=== PATIENT | male | born 1950 | race Caucasian/White ===

== ENCOUNTER 2016-06-26 12:58 | Inpatient (IN) ==
--- NOTE | 2016-06-26 13:18 | Emergency Department Note ---
Disposition Clinical Impression: Hip fracture Disposition: Admitted As Inpatient Referrals: Gisselle Seymour CNP [Primary Care Provider] - Forms: ED Satisfaction Letter General Adult HPI - General Chief complaint: ED Extremity Injury, Upper Stated complaint: fall (hip sugery x5 weeks) Time Seen by Provider: 06/26/16 13:18 Source: patient, family Limitations: physical limitation - History of Present Illness HPI Narrative: 66-year-old male reports he had a left hip replacement secondary to osteoarthritis about 5 weeks ago. The patient reports he was improving and taking less Percocet for pain when he developed acute pain today. The patient reports he was walking and he felt his hip "give out" and he twisted. He developed severe pain in the left hip afterwards. The patient is not known to be diabetic. He reports his wound is healing well. There is no history of fall onto the hip. The patient has had pain from his hip to his leg since the surgery. The pain became acutely worse. There is no history of antecedent complaints or concern otherwise. He was in his usual state of health. The patient denies any head trauma neck pain back pain chest pain or abdominal pain no upper extremity pain or right lower extremity pain there is no history of ankle pain or foot pain or leg pain or anthony knee pain. Left hip pain acutely as described. The pain is associated with movement. There is no history of low back pain spinal pain weakness or numbness of the legs, bowel or bladder problems, or any other complaint or concern. 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 Pain Scale: 10 - Related Data Home Medications Medication Instructions Recorded Confirmed Gabapentin [Neurontin] 300 mg PO TID 05/23/16 05/23/16 Lisinopril [Zestril] 20 mg PO DAILY 05/23/16 05/23/16 Meloxicam [Mobic] 15 mg PO DAILY 05/23/16 05/23/16 Omeprazole [PriLOSEC] 40 mg PO DAILY 05/23/16 05/23/16 Previous Rx's Medication Instructions Recorded OxyCODONE Immed Rel [Roxicodone 5 5 - 10 mg PO Q6HR PRN #40 tablet 05/22/16 MG] Allergies Allergy/AdvReac Type Severity Reaction Status Date / Time No Known Allergies Allergy Verified 06/26/16 15:23 All systems ED: reviewed and negative except as stated. Past Medical History - Past Medical History Medical history: Reports: arthritis, GERD, hypertension Psychiatric history: Reports: no psych history - Social History Smoking Status: Former smoker Smokeless Tobacco Status: No Alcohol use: Reports: occasionally Drug use: Reports: none Physical Exam - General Limitations: physical limitation General appearance: alert, in no apparent distress - Head Head exam: atraumatic, normocephalic, normal inspection - Eye Eye exam: Present: normal appearance, PERRL, EOMI. Absent: scleral icterus, conjunctival injection, miosis, mydriasis - ENT ENT exam: normal exam, normal oropharynx, mucous membranes moist, TM's normal bilaterally, normal external ear exam - Neck Neck exam: Present: normal inspection, full ROM, trachea midline. Absent: tenderness - Chest Chest inspection: Present: symmetric chest wall rise. Absent: tenderness - Respiratory Respiratory exam: Present: normal lung sounds bilaterally. Absent: respiratory distress - Cardiovascular Cardiovascular exam: Present: regular rate, normal rhythm, normal heart sounds - Abdominal Exam Abdominal exam: Present: soft, Non-Tender. Absent: tenderness, distention, guarding, rebound, rigidity - Extremities Exam Extremities exam: Present: normal capillary refill, other (The upper extremities and right lower extremity are supple without evidence of anthony trauma and are warm and well perfused. The left lower extremity shows a good range of motion at the knee and ankle but there is pain with movement and palpation of the hip. All 4 extremities show no evidence of acute neurovascular or neuromuscular abnormality.). Absent: joint swelling, calf tenderness - Expanded Lower Extremity Exam Neurovascular/Tendon exam: Present: normal capillary refill. Absent: motor deficit, sensory deficit, tendon deficit - Back Exam Back exam: Present: full ROM. Absent: tenderness, CVA tenderness (R), CVA tenderness (L), vertebral tenderness - Neurological Exam Neurological exam: Present: alert, oriented X3, CN II-XII intact. Absent: motor sensory deficit - Psychiatric Psychiatric exam: Present: normal affect, normal mood - Skin Skin exam: Present: warm, dry, intact, normal color, other (Surgical wound clean dry intact.). Absent: rash, cyanosis, diaphoresis, erythema, pallor, mottled Course Vital Signs Temperature 97.7 F 06/26/16 13:12 Pulse Rate 107 06/26/16 13:12 Respiratory Rate 16 06/26/16 13:12 Blood Pressure 142/86 06/26/16 13:12 O2 Sat by Pulse Oximetry 96 06/26/16 13:12 Temperature 97.7 F 06/26/16 13:12 Pulse Rate 107 06/26/16 13:28 Respiratory Rate 16 06/26/16 13:28 Blood Pressure 142/86 06/26/16 13:28 O2 Sat by Pulse Oximetry 96 06/26/16 13:28 Oxygen Delivery Oxygen Delivery Room Air Medical Decision Making - MDM Narrative Medical decision making narrative: The patient appears to have an acute hip fracture, I discussed the case with Dr. Swain orthopedist, who recommends hospitalist admission. I reviewed the case with Dr. Santos hospitalist bath design sales consultant who has accepted the patient to his care. Preoperative testing has been ordered. The patient was given analgesics in the emergency department and made nonweightbearing. He is currently stable pending admission with no evidence of neurovascular or neuromuscular compromise. The patient's surgical wound is clean dry intact. He has no other complaints apart from acute left hip pain. - Radiology Data Radiology results reviewed: Yes I reviewed the patient's radiology results.
[2016-06-26] MEDS ORDERED: *HR* OxyCODONE/APAP 5/325 TABLET PO ONE (13:27)
[2016-06-26] MEDS ORDERED: *HR* HYDROmorphone (PF) 1 MG/ML SYRINGE IVP ONE (15:15)
[2016-06-26] MEDS ORDERED: Ondansetron 4 MG/2 ML VIAL IVP ONE (15:15)
[2016-06-26 16:05] LABS: Basophils # 0.1 K/mcL (0.0-0.2); Basophils % 0.5 %; Eosinophils # 0.1 K/mcL (0.0-0.6); Eosinophils % 0.6 %; Hemoglobin 13.4 g/dL (12.9-16.9); Immature Granulocytes % 0.4 % (0-4); Lymphocytes # 1.7 K/mcL (0.6-4.6); Lymphocytes % 13.5 %; Mean Corpuscular HGB Conc 33.5 g/dL (31.6-35.5); Mean Corpuscular Hemoglobin 29.5 pg (28.0-33.3); Mean Corpuscular Volume 88.1 fL (83.0-100.0); Monocytes # 0.8 K/mcL (0.0-1.3); Monocytes % 6.4 %; Neutrophils # 10.2 K/mcL (1.6-8.9); Platelet Count 192 K/mcL (140-400); Red Blood Count 4.54 M/mcL (4.19-5.50); Red Cell Distribution Width 12.7 % (11.5-14.5); Segmented Neutrophils % 78.6 %
[2016-06-26 16:10] LABS: INR 1.1; Prothrombin Time 12.3 Seconds (9.4-12.1)
[2016-06-26 16:13] LABS: Activated Partial Thrombo Time 32.6 Seconds (26.0-36.0)
[2016-06-26 16:18] LABS: BUN/Creatinine Ratio 16 (6-26); Blood Urea Nitrogen 15 mg/dL (8-26); Carbon Dioxide 20 mEq/L (19-29); Chloride 105 mEq/L (98-109); Potassium 3.9 mEq/L (3.5-4.5); Sodium 139 mEq/L (136-145); eGFR For African Americans > 60 (> 60)
[2016-06-26 16:19] LABS: Calcium 9.3 mg/dL (8.6-10.8); Glucose 115 mg/dL (70-99); Osmolality,Calculated 290 (280-300); eGFR For Non-African Americans > 60 (> 60)
[2016-06-26 16:20] LABS: Albumin 3.9 g/dL (3.5-5.0); Albumin/Globulin Ratio 1.3 (1.1-2.2); Bilirubin,Direct 0.2 mg/dL (0.0-0.5); Bilirubin,Indirect 0.2 mg/dL (0.0-1.2); Bilirubin,Total 0.4 mg/dL (0.2-1.2); Globulin 2.9 g/dL (2.4-3.5); Total Protein 6.8 g/dL (6.0-8.3)
[2016-06-26] MEDS ORDERED: Naloxone 0.4 MG/ML INJ IVP PRN (17:39)
--- NOTE | 2016-06-26 18:08 | Internal Med History&Physical ---
<Wolfgang Santos - Last Filed: 06/26/16 19:27> Date of Encounter: 06/26/16 Internal Medicine - H&P: HPI History of present illness: Mr. Zambrano is a 66 year old male Internal Medicine - H&P: Meds OxyCODONE Immed Rel [Roxicodone 5 MG] 5 - 10 mg PO Q6HR PRN #40 tablet 05/22/16 [Rx] Gabapentin [Neurontin] 300 mg PO TID 05/23/16 [History] Lisinopril [Zestril] 20 mg PO DAILY 05/23/16 [History] Meloxicam [Mobic] 15 mg PO DAILY 05/23/16 [History] Omeprazole [PriLOSEC] 40 mg PO DAILY 05/23/16 [History] Allergies No Known Allergies Allergy (Verified 06/26/16 15:23) All Systems PM: A 10-system review of systems was performed and is negative for pertinent findings except as documented above in the HPI. - Constitutional Vitals: Temp Pulse Resp BP Pulse Ox 97.7 F 106 16 142/94 99 06/26/16 13:12 06/26/16 15:45 06/26/16 16:06 06/26/16 16:06 06/26/16 15:45 Internal Med - H&P Results - Labs CBC & Chem 7: 06/26/16 15:52 06/26/16 15:52 - Attending Attestation I examined this patient and my medical decision-making was reviewed with the Advanced Practice Provider. I agree with the documented findings, disposition and treatment plan as described except to the extent set forth below. On ex patient is in no acute distress, awake alert oriented heart regular rate and rhythm S1-S2 no murmurs. Lungs clear bilaterally abdomen soft nontender nondistended with normoactive bowel sounds extremities: Left mid-thigh soft tissue swelling and tenderness to palpation, no bruising or deformity noted. No open wounds. Peripheral pulses bounding at both dorsalis pedis sites. Plan: Resume home medications. Nothing by mouth after midnight. IV fluids. Orthopedics consult. <Piedad Lucia - Last Filed: 06/27/16 00:36> Date of Encounter: 06/27/16 Time of Encounter: 18:06 Assessment and Plan (1) Left femoral shaft fracture Current visit: Yes Status: Acute Patient fell today, walking over uneven ground in his yard. He reports he twisted as he fell and heard a "crunch". He had severe, sharp pain. On exam, there is swelling and tenderness in the proximal left leg. Xray showed an acute oblique fracture of the proximal diaphysis of the femur. The stem of the femoral component of the prosthesis tranverses the fracture line. Dr. Swain was consulted and plans for surgery tomorrow. NPO after midnight 0.9NS at 100mL/hr after midnight Pre-op CXR negative for acute abnormality and EKG showed NSR with no changes oxycodone and IV dilaudid for pain control Narcan ordered PRN for respiratory depression Qualifiers: Encounter type: initial encounter Fracture type: closed Fracture morphology: oblique Fracture alignment: displaced Qualified Code(s): S72.332A - Displaced oblique fracture of shaft of left femur, initial encounter for closed fracture (2) HTN (hypertension) Current visit: No Status: Chronic Continue home dose of Lisinopril Qualifiers: Hypertension type: essential hypertension Qualified Code(s): I10 - Essential (primary) hypertension (3) DVT prophylaxis Current visit: Yes Status: Acute Bed rest due to fractured femur calf compressors Heparin 5,000u SQ BID Internal Medicine - H&P: HPI Chief complaint: Left leg pain Admitted From: Emergency Dept Plans for Post Hospital Care: Home History of present illness: Mr. Zambrano is a 66 year old male with arthritis, hypertension and GERD, with recent Let hip replacement 5 weeks ago, who presented to the ED today after a fall and with severe left leg pain. He reports he was walking in his yard over uneven ground and felt his left leg gave out and he twisted as he fell. He reports the pain was severe, sharp, no somewhat relieved by pain medicine given in the emergency department. He denies hitting his head or any loss of consciousness. Neither any lightheadedness, dizziness, faint. Xray in the ED revealed fracture of proximal shaft of left femur. Dr. Swain was consulted and plans to see the patient tomorrow for surgery. On exam, patient is alert and oriented, in no distress. Pain has been controlled. Heart has regular rate and rhythm and lungs are clear to auscultation bilaterally. Left hip shows well -healed surgical scar. Proximal left leg is swollen and tender to palpation. Past Med Surg Social Fam HX - Past Medical History Medical history: arthritis, GERD, hypertension Psychiatric history: no psych history - Past Surgical History Surgical History: hip replacement (left), orthopedic, other (right hand) - Social History Smoking Status: Former smoker (34 Pack year history) Smokeless Tobacco Status: No Alcohol use: occasionally Drug use: none - Family History Father Living Status: Hx Family Endocrine Disorder: Yes (DM) Mother Living Status: Hx Family Cardiac Disorders: Yes (heart disease) All Systems PM: A 10-system review of systems was performed and is negative for pertinent findings except as documented above in the HPI. - Constitutional Constitutional: no chills, no fever(s), no night sweats - EENT Eyes: no change in vision, no discharge, no pain, no photophobia Ears: no ear discharge, no ear pain, no tinnitus Nose, mouth and throat: no dysphagia, no nasal discharge, no neck pain, no sore throat - Cardiovascular Cardiovascular ROS IM: no chest pain, no diaphoresis, no dyspnea, no lightheadedness, no palpitations, no syncope - Respiratory Respiratory: no cough, no dyspnea, no wheezing, no excessive phlegm production - Gastrointestinal Gastrointestinal: no abdominal pain, no diarrhea, no hematemesis, no hematochezia, no melena, no nausea, no vomiting - Musculoskeletal Musculoskeletal ROS IM: joint swelling (left hip), limited range of motion ( left hip due to pain), no numbness, no tingling - Integumentary Integumentary IM: no rash, no unusual bruising - Neurological Neurological ROS: no confusion, no convulsions, no focal weakness, no numbness, no tingling, no tremor(s) - Hematologic/Lymphatic Hematologic/Lymphatic: no easy bruising - Constitutional Vitals: Temp Pulse Resp BP Pulse Ox 97.7 F 106 16 142/94 99 06/26/16 13:12 06/26/16 15:45 06/26/16 16:06 06/26/16 16:06 06/26/16 15:45 General appearance: Present: A&O X 3, no acute distress - Head Head exam: Present: atraumatic, normocephalic - Eye Eye exam: Present: PERRL, conjuntiva pink, sclera anicteric Pupils: Present: PERRL - Neck Neck exam general surgery: Present: supple, trachea midline. Absent: lymphadenopathy - Respiratory Respiratory exam: Present: CTAB. Absent: accessory muscle use, rales, rhonchi, wheezes - Cardiovascular Cardiovascular exam: Present: RRR, +S1, +S2. Absent: diastolic murmur, gallop, rubs, systolic murmur - GI/Abdominal GI/Abdominal exam: Present: normal bowel sounds, soft, no peritoneal signs. Absent: distended, tenderness - Extremities Exam Extremities exam: Present: normal capillary refill, warm, radial pulses palpable and symetrical. Absent: calf tenderness, cyanotic, pedal edema Additional comments: Left proximal leg with swelling and tenderness to palpation. Left hip with well healed surgical scar - Neurological Exam Neurological exam: Present: CN II-XII intact, oriented X3, no focal deficits. Absent: pronater drift, facial droop, speech deficit - Skin Skin exam: Present: dry, intact Internal Med - H&P Results - Labs CBC & Chem 7: 06/26/16 15:52 06/26/16 15:52 Labs: Short CBC 06/26/16 Range/Units 15:52 WBC 12.9 H (4.3-11.1) K/mcL Hgb 13.4 (12.9-16.9) g/dL Hct 40.0 (37.5-50.1) % Plt Count 192 (140-400) K/mcL Neutrophils # 10.2 H (1.6-8.9) K/mcL BMP 06/26/16 15:52 Sodium 139 Potassium 3.9 Chloride 105 Carbon Dioxide 20 BUN 15 Creatinine 0.94 Glucose 115 H Calcium 9.3 Cardiac Enzymes 06/26/16 Range/Units 15:52 Troponin I 0.00 (0-0.03) ng/mL Liver Function 06/26/16 Range/Units 15:52 Total Bilirubin 0.4 (0.2-1.2) mg/dL Direct Bilirubin 0.2 (0.0-0.5) mg/dL AST 17 (5-34) Units/L ALT 25 (0-55) Units/L Alkaline Phosphatase 115 (38-126) Units/L Albumin 3.9 (3.5-5.0) g/dL
[2016-06-26] MEDS: Gabapentin 300 MG CAPSULE PO SCH (20:17)
[2016-06-26] MEDS: *HR* HYDROmorphone (PF) 1 MG/ML SYRINGE IVP PRN (20:23)
[2016-06-26] MEDS: *HR* OxyCODONE Immed Rel 5 MG TABLET PO PRN (23:11)
[2016-06-26] MEDS: 0.9 % Sodium Chloride 1,000 ML IVC SCH (23:13)
[2016-06-27 05:03] LABS: Basophils % 0.5 %; Eosinophils # 0.1 K/mcL (0.0-0.6); Eosinophils % 1.2 %; Hematocrit 37.5 % (37.5-50.1); Hemoglobin 12.3 g/dL (12.9-16.9); Immature Granulocytes % 0.3 % (0-4); Immature Platelets 5.5 % (1.1-6.1); Lymphocytes # 1.8 K/mcL (0.6-4.6); Lymphocytes % 20.8 %; Mean Corpuscular HGB Conc 32.8 g/dL (31.6-35.5); Mean Corpuscular Hemoglobin 29.7 pg (28.0-33.3); Mean Corpuscular Volume 90.6 fL (83.0-100.0); Mean Platelet Volume 11.2 fL (9.4-12.4); Monocytes # 0.9 K/mcL (0.0-1.3); Monocytes % 9.9 %; Neutrophils # 5.9 K/mcL (1.6-8.9); Platelet Count 157 K/mcL (140-400); Red Blood Count 4.14 M/mcL (4.19-5.50); Red Cell Distribution Width 12.8 % (11.5-14.5); Segmented Neutrophils % 67.3 %
[2016-06-27 05:16] LABS: BUN/Creatinine Ratio 11 (6-26); Blood Urea Nitrogen 11 mg/dL (8-26); Calcium 8.6 mg/dL (8.6-10.8); Carbon Dioxide 24 mEq/L (19-29); Chloride 103 mEq/L (98-109); Glucose 113 mg/dL (70-99); Osmolality,Calculated 286 (280-300); Sodium 138 mEq/L (136-145); eGFR For African Americans > 60 (> 60); eGFR For Non-African Americans > 60 (> 60)
[2016-06-27] MEDS: *HR* HYDROmorphone (PF) 1 MG/ML SYRINGE IVP PRN ×2 (06:32→11:51)
--- NOTE | 2016-06-27 06:35 | Orthopedics Progress Note ---
Date of Encounter: 06/27/16 Time of Encounter: 06:33 Subjective Interval history: Patient with a fall yesterday status post left total hip replacement in April. Patient describes a twisting injury resulting in immediate pain and falling. Physical exam patient alert and oriented 3 Left lower extremity shortened externally rotated Neurovascular intact X-rays reviewed show a periprosthetic left femur fracture proximal third with subsidence of femoral stem. Recommendation is for revision of left femoral component with removal fixation of fracture and implantation of new stem. Risks benefits as well as recovery were discussed with the patient. Objective Vital signs: Vital Signs Temp Pulse Resp BP Pulse Ox 06/27/16 04:15 98.4 F 76 16 115/67 96 06/26/16 23:50 98.6 F 90 16 120/65 94 L 06/26/16 20:22 98.9 F 100 16 115/66 93 L 06/26/16 20:18 93 L Intake and Output 06/26/16 06/26/16 06/27/16 15:59 23:59 07:59 Intake Total 280 / 280 Output Total 300 / 300 Balance 280 / 280 -300 / -300 Intake: Oral 280 / 280 Output: Urine 300 / 300 - Labs CBC & BMP: 06/27/16 04:42 06/27/16 04:42 Labs: Abnormal lab results RBC 4.14 M/mcL (4.19-5.50) L 06/27/16 04:42 Hgb 12.3 g/dL (12.9-16.9) L 06/27/16 04:42 PT 12.3 Seconds (9.4-12.1) H 06/26/16 15:52 Glucose 113 mg/dL (70-99) H 06/27/16 04:42 Consult Discharge Plan - Plan Referrals: Gisselle Seymour, CHAIR SPRINGER [Primary Care Provider] -
[2016-06-27] MEDS ORDERED: *HR* Heparin 5,000 UNIT/ML VIAL SQ SCH (07:00)
[2016-06-27] MEDS: *HR* OxyCODONE Immed Rel 5 MG TABLET PO PRN ×3 (07:30→21:03)
[2016-06-27] MEDS: Gabapentin 300 MG CAPSULE PO SCH ×3 (07:32→21:03)
[2016-06-27] MEDS ORDERED: Lisinopril 20 MG TABLET PO SCH (09:00)
[2016-06-27] MEDS: 0.9 % Sodium Chloride 1,000 ML IVC SCH (09:43)
--- NOTE | 2016-06-27 14:12 | Internal Med Progress Note ---
Date of Encounter: 06/27/16 Time of Encounter: 08:30 - Assessment and plan (1) Left femoral shaft fracture Current Visit: Yes Status: Acute Qualifiers: Encounter type: subsequent encounter Fracture type: closed Fracture morphology: oblique Fracture alignment: displaced Fracture healing: with routine healing Qualified Code(s): S72.332D - Displaced oblique fracture of shaft of left femur, subsequent encounter for closed fracture with routine healing (2) GERD (gastroesophageal reflux disease) Current Visit: No Status: Chronic Qualifiers: Esophagitis presence: esophagitis presence not specified Qualified Code(s) : K21.9 - Gastro-esophageal reflux disease without esophagitis (3) HTN (hypertension) Current Visit: No Status: Chronic Qualifiers: Hypertension type: essential hypertension Qualified Code(s): I10 - Essential (primary) hypertension - Subjective Interval history: Mr. Zambrano is currently admitted for periprosthetic L hip fracture. He is high due to potential complications from acute hip fracture. - Constitutional Vitals: Temp Pulse Resp BP Pulse Ox 98.2 F 82 18 118/70 98 06/27/16 10:54 06/27/16 10:54 06/27/16 10:54 06/27/16 10:54 06/27/16 07:35 General appearance: Present: A&O X 3, no acute distress - Head Head exam: Present: normocephalic - Eye Eye exam: Present: conjuntiva pink - ENT ENT exam: Present: mucous membranes moist - Respiratory Respiratory exam: Present: CTAB. Absent: wheezes - Cardiovascular Cardiovascular exam: Present: RRR. Absent: tachycardia - GI/Abdominal GI/Abdominal exam: Present: soft. Absent: tenderness - Extremities Exam Extremities exam: Present: warm. Absent: pedal edema - Neurological Exam Neurological exam: Present: alert, oriented X3, no focal deficits - Psychiatric Psychiatric exam: Present: normal affect, normal mood - Skin Skin exam: Present: dry, warm. Absent: rash Internal Medicine: Result - Labs CBC & Chem 7: 06/27/16 04:42 06/27/16 04:42 Labs: Short CBC 06/27/16 Range/Units 04:42 WBC 8.8 (4.3-11.1) K/mcL Hgb 12.3 L (12.9-16.9) g/dL Hct 37.5 (37.5-50.1) % Plt Count 157 (140-400) K/mcL Neutrophils # 5.9 (1.6-8.9) K/mcL BMP 06/27/16 04:42 Sodium 138 Potassium 4.0 Chloride 103 Carbon Dioxide 24 BUN 11 Creatinine 0.96 Glucose 113 H Calcium 8.6 - ABG Interpretation ABG results: PT/INR, D-dimer PT 12.3 Seconds (9.4-12.1) H 06/26/16 15:52 Consult Discharge Plan - Plan Referrals: Gisselle Seymour, BANQUET BARTENDER [Primary Care Provider] -
--- NOTE | 2016-06-27 14:19 | Anesthesia Evaluation PreOp ---
Date of Encounter: 06/27/16 Time of Encounter: 14:17 - Past History Planned Operation: Revision left [place] fix femoral fracture Cardiac History: HTN Pulmonary History: Former smoker (34 pk/yrs quit 20yrs ago) [employer]NER History: Denies Any Significant HX Other Medical History: Renal (CRI), GERD Anesthesia History: No Prior Anesthetic Complications, Past Anesthesia (several orthopedic surgeries) Alcohol Use: occasionally Drug use: none Medications and Allergies OxyCODONE Immed Rel [Roxicodone 5 MG] 5 - 10 mg PO Q6HR PRN #40 tablet 05/22/16 [Rx] Gabapentin [Neurontin] 300 mg PO TID 05/23/16 [History] Lisinopril [Zestril] 20 mg PO DAILY 05/23/16 [History] Meloxicam [Mobic] 15 mg PO DAILY 05/23/16 [History] Omeprazole [PriLOSEC] 40 mg PO DAILY 05/23/16 [History] Allergies No Known Allergies Allergy (Verified 06/26/16 15:23) - Meds/Allergy Pre-op Review Medications Reviewed: Yes Allergies Reviewed: Yes Beta Blockers on Current Med List: No Anesthesia Results - Labs 06/27/16 04:42 06/27/16 04:42 - Imaging EKG: report reviewed (NSR on 05/19/16) Chest x-ray: report reviewed Anesthesia Exam Selected Entries 06/27/16 10:54 Temperature 98.2 F Pulse Rate 82 Respiratory Rate 18 Blood Pressure 118/70 Height: 67in Weight: 211lb NPO (# of Hours): 8 Pain Scale: 0 Pain Scale Used: Numeric (1 - 10) - HEENT Pupil (Motor): EOMI Mallampati: II Teeth: Edentulous Oral Opening: Greater than 3 - [employer]NER LOC: Oriented [employer]NER Motor: Normal RUE, Normal LUE, Normal RLE, Normal LLE, Normal Face [employer]NER Sensory: Normal: RUE, LUE, RLE, LLE, Face - Cardiac Rhythm: Regular Murmur: None - Pulmonary Breath Sounds: bilateral Clear Respiratory Effort: Symmetrical Anesthesia Assess/Plan ASA Score: 3 Modified [place] Scale for Level of Consciousness: Cooperative, oriented, and tranquil Anesthetic Plan: General Monitoring Plan: Standard Monitors Recovery Plan: PACU (agrees to GA)
--- NOTE | 2016-06-27 16:01 | Electrocardiograph Report ---
[facility] Test Date: 2016-06-26 Pat Name: Desmond Zambrano Department: 105 Room: [facility] Gender: M Scutcher Tender: [facility] : 1950 Requested By: Jomar Mccracken Order Number: [id number] Reading MD: Sweta Paul Measurements Intervals [place] Rate: 94 P: 46 ID: [id number] QRS: -8 QRSD: 93 T: 4 QT: 331 QTc: 383 Interpretive Statements SINUS RHYTHM Electronically Signed On 06-27-16 15:59:02 EST by Sweta Paul
[2016-06-27] MEDS ORDERED: *HR* Propofol 200 MG/20 ML VIAL IVP ONE (16:11)
[2016-06-27] MEDS ORDERED: Lidocaine -MPF 2% 2 ML VIAL ONE (16:11)
[2016-06-27] MEDS ORDERED: *HR* FentaNYL (PF) 100 MCG/2 ML VIAL ONE (16:20)
[2016-06-27] MEDS ORDERED: *HR* Midazolam HCl 5 MG/5 ML VIAL IVP ONE (16:20)
[2016-06-27] MEDS ORDERED: *HR* Midazolam HCl 2 MG/2 ML VIAL ONE (16:21)
--- NOTE | 2016-06-27 17:10 | Discharge Summary ---
Date of Encounter: 06/29/16 Time of Encounter: 08:43 - Discharge Diagnosis (1) Obesity (BMI 30.0-34.9) Priority: Secondary Status: Chronic (2) Left femoral shaft fracture Priority: Primary Status: Acute Qualifiers: Encounter type: subsequent encounter Fracture type: closed Fracture morphology: oblique Fracture alignment: displaced Fracture healing: with routine healing Qualified Code(s): S72.332D - Displaced oblique fracture of shaft of left femur, subsequent encounter for closed fracture with routine healing (3) GERD (gastroesophageal reflux disease) Priority: Secondary Status: Chronic Qualifiers: Esophagitis presence: esophagitis presence not specified Qualified Code(s) : K21.9 - Gastro-esophageal reflux disease without esophagitis (4) HTN (hypertension) Priority: Secondary Status: Chronic Qualifiers: Hypertension type: essential hypertension Qualified Code(s): I10 - Essential (primary) hypertension - Discharge Medications Prescriptions: Aspirin Enteric Coated [Aspirin EC] 325 mg PO Q12H #30 tablet. OxyCODONE Immed Rel [Roxicodone 5 MG] 5 - 10 mg PO Q6HR PRN #40 tablet PRN Reason: Pain Home Medications: Gabapentin [Neurontin] 300 mg PO TID 05/23/16 [History] Lisinopril [Zestril] 20 mg PO DAILY 05/23/16 [History] Meloxicam [Mobic] 15 mg PO DAILY 05/23/16 [History] Omeprazole [PriLOSEC] 40 mg PO DAILY 05/23/16 [History] Aspirin Enteric Coated [Aspirin EC] 325 mg PO Q12H #30 tablet. 06/27/16 [Rx] OxyCODONE Immed Rel [Roxicodone 5 MG] 5 - 10 mg PO Q6HR PRN #40 tablet 06/27/16 [Rx] Allergies/Adverse Reactions: Allergies No Known Allergies Allergy (Verified 06/26/16 15:23) Labs on day of discharge: Labs from last 24 hours 06/27/16 06/27/16 04:42 04:42 WBC 8.8 RBC 4.14 L Hgb 12.3 L Hct 37.5 MCV 90.6 MCH 29.7 MCHC 32.8 RDW 12.8 Plt Count 157 MPV 11.2 Immature Gran % 0.3 Seg Neutrophils % 67.3 Lymphocytes % 20.8 Monocytes % 9.9 Eosinophils % 1.2 Basophils % 0.5 Neutrophils # 5.9 Lymphocytes # 1.8 Monocytes # 0.9 Eosinophils # 0.1 Basophils # 0.0 Immature Plt Fraction 5.5 Sodium 138 Potassium 4.0 Chloride 103 Carbon Dioxide 24 BUN 11 Creatinine 0.96 Est GFR ( Amer) > 60 Est GFR (Non-Af Amer) > 60 BUN/Creatinine Ratio 11 Glucose 113 H Calculated Osmolality 286 Calcium 8.6 Date of admission: 06/26/16 18:01 Primary care physician: Gisselle Seymour CNP Consults: 06/26/16 19:11 Consult to Orthopedic Surgery [CONS] Routine Consulting Provider: [facility] Reason for Consult: L femur fracture Time Notified: 17:00 Call Completed: Yes - Patient Status Disposition: Home, Self-Care Condition: Good Functional capacity at discharge: uses cane/walker Overall status at discharge: patient is progressing back to baseline - Discharge Instructions Follow Up With: Josselyn Li PAC [Physician Culled Fruit Packer] - 08/03/16 10:30 am Gisselle Seymour CNP [Primary Care Provider] - 08/15/16 8:30 am - Hospital Course Hospital course: Mr. Zambrano is a 66 year old male The patient had an uneventful postoperative course. They received antibiotics and physical therapy and were discharged in stable condition. There will follow -up in the office in 2 weeks. Aspirin DVT prophylaxis - Time Spent with Patient Total time spent providing and/or coordinating discharge services:
[2016-06-27] MEDS ORDERED: *HR* HYDROmorphone 2 MG/ML SYRINGE ONE (17:56)
[2016-06-27] MEDS ORDERED: *HR* HYDROmorphone (PF) 1 MG/ML SYRINGE IVP PRN ×2 (18:17→20:47)
--- NOTE | 2016-06-27 18:29 | Orthopedic Operative Note ---
Date of procedure: 06/27/16 Pre-op diagnosis: Periprosthetic left femur fracture with femoral component subsidence Post-op diagnosis: same Procedure: Procedure: Left Revision femur of Total Hip Replacment Estimated blood loss: 150 cc Hardware: biomet 14 x 150 stem size a 50 mm cone body 28 mm +0 head with poly- , 3 super cables Procedural Notes: Proximal third femoral shaft fracture with femoral subsidence and loosening. Operative procedure: The patient was brought to the operating room and placed on the operating room table. After general anesthesia was administered the patient was placed in the lateral decubitus position with the operative leg up. All pressure points were padded appropriately and the head was stabilized in the neutral position. The operative extremity was prepped and draped in the sterile surgical fashion patient received IV antibiotic prior to skin incision. A standard posterior approach is made to the operative hip, through the old incision. Extended down distally along the lateral aspect of the femur. The incision was made through the skin and subcutaneous tissue hemostasis was obtained with Bovie cautery. Using careful sharp dissection the fascia was identified and incised patient had significant scar tissue within the posterior aspect. This was resected. Cultures were obtained at the level hip joint, normal joint fluid was encountered. The fascia of the vastus lateralis was split the muscle was elevated up off the proximal femur. 3 super cables were passed subperiosteally at the level of the fracture site. The femoral stem was then removed without incident. The fracture was then fixed with the 3 super cables. This gave a good reduction on palpation. Hip was brought into internal rotation. Attention was then turned to preparation of the femoral canal. The femur was reamed distally up to a size 14 x 150, the articular by [address] stem was impacted in place. The size and a 50 mm cone body was impacted in place in 20 degrees of anteversion.. Trial reduction revealed excellent stability with a +0 metal head with the appropriate poly-. The trials were removed and the real implants were impacted in place. The hip was reduced, patient had apparent equal leg lengths. The hip had excellent stability with forward flexion to 90 degrees adduction of 30 degrees and internal rotation of 60 degrees. The hip had no shuck. The hips sat for 2 minutes with a Betadine saline solution. It was irrigated out with 2 L of pulse irrigation. The fascia of the vastus lateralis was closed with a running #1 PDS suture. The tensor Fascia was closed with a running #2 PDS suture. The deep tissue was irrigated and closed deep with #1 PDS suture superficially with 0 PDS suture and skin was closed with Dermabond and skin minerva. The patient was placed in a sterile dressing and abduction pillow. The patient was extubated and transferred to the recovery room in stable condition. Anesthesia: JESSICA Surgeon: Femi Swain Condition: stable Disposition: PACU
[2016-06-27 19:25] LABS: Hematocrit 37.7 % (37.5-50.1); Hemoglobin 12.1 g/dL (12.9-16.9)
[2016-06-27] MEDS ORDERED: Acetaminophen IV 1,000 MG/100 ML INFUS..BTL IVPB ONE (19:26)
[2016-06-27] MEDS ORDERED: Gabapentin 400 MG CAPSULE PO STA ×2 (19:28→19:40)
[2016-06-27] MEDS ORDERED: Sennosides 8.6 MG TABLET PO PRN (20:47)
[2016-06-27] MEDS ORDERED: Acetaminophen 325 MG TABLET PO PRN (20:47)
[2016-06-27] MEDS ORDERED: Temazepam 15 MG CAPSULE PO PRN (20:47)
[2016-06-27] MEDS ORDERED: MOM Conc 10 ML UD.LIQ PO PRN (20:47)
[2016-06-27] MEDS ORDERED: *HR* OxyCODONE Immed Rel 5 MG TABLET PO PRN (20:47)
[2016-06-27] MEDS ORDERED: Ondansetron 4 MG/2 ML VIAL IVP PRN (20:47)
[2016-06-27] MEDS ORDERED: Naloxone 0.4 MG/ML INJ IVP PRN ×2 (20:47)
[2016-06-27] MEDS ORDERED: Ringers Solution, Lactated 1,000 ML IVC SCH (20:47)
[2016-06-27] MEDS: Ascorbic Acid 500 MG TABLET PO SCH (21:03)
--- NOTE | 2016-06-27 21:11 | Anesthesia Evaluation Post Op ---
Date of Encounter: 06/27/16 Time of Encounter: 20:10 - Vital Signs Vital Signs: Vital Signs/O2 Sat/Glucose, Most Current Temp Pulse Resp BP Pulse Ox 06/27/16 20:05 97.7 F 97 14 103/60 94 L 06/27/16 19:55 97.7 F 96 14 95/54 96 06/27/16 19:45 98 14 94/63 93 L 06/27/16 19:35 96 16 100/61 94 L 06/27/16 19:25 97.8 F 99 16 107/60 98 06/27/16 19:15 102 18 109/73 97 06/27/16 19:05 90 18 102/58 100 06/27/16 18:55 98.8 F 93 18 85/62 100 - Lungs Lungs: Clear Ascult./Percussion - Airway Airway: Non-obstructed - Cardiovascular Regular Rate - Mental Status Mental Status: Alert & Oriented, Answers Appropriately - Pain Pain Scale: 2 Pain Scale used: Al-Stoll (Faces) - Nausea Vomiting Nausea Vomiting: Not Present - Hydration Hydration: Ice chips (declined) - Discharge PostOp Status: Transfer Patient to floor Anes Supervising Prov Stmt: Pt seen/evaluated, VSS and pt has met criteria for discharge to floor. - MD Nilda
[2016-06-28] MEDS: ceFAZolin 2,000 MG in D5% in Water 100 ML IVPB SCH ×2 (00:04→07:56)
[2016-06-28] MEDS: *HR* OxyCODONE Immed Rel 5 MG TABLET PO PRN ×4 (03:36→20:14)
[2016-06-28 05:20] LABS: Hematocrit 33.9 % (37.5-50.1); Hemoglobin 11.1 g/dL (12.9-16.9)
[2016-06-28 05:42] LABS: BUN/Creatinine Ratio 13 (6-26); Blood Urea Nitrogen 14 mg/dL (8-26); Calcium 8.6 mg/dL (8.6-10.8); Carbon Dioxide 24 mEq/L (19-29); Chloride 102 mEq/L (98-109); Glucose 142 mg/dL (70-99); Osmolality,Calculated 287 (280-300); Potassium 4.3 mEq/L (3.5-4.5); Sodium 137 mEq/L (136-145); eGFR For African Americans > 60 (> 60); eGFR For Non-African Americans > 60 (> 60)
--- NOTE | 2016-06-28 06:21 | Orthopedics Progress Note ---
Date of Encounter: 06/28/16 Time of Encounter: 06:20 - Assessment and Plan (1) Obesity (BMI 30.0-34.9) Current Visit: Yes Status: Chronic (2) Left femoral shaft fracture Current Visit: Yes Status: Acute Qualifiers: Encounter type: subsequent encounter Fracture type: closed Fracture morphology: oblique Fracture alignment: displaced Fracture healing: with routine healing Qualified Code(s): S72.332D - Displaced oblique fracture of shaft of left femur, subsequent encounter for closed fracture with routine healing (3) GERD (gastroesophageal reflux disease) Current Visit: No Status: Chronic Qualifiers: Esophagitis presence: esophagitis presence not specified Qualified Code(s) : K21.9 - Gastro-esophageal reflux disease without esophagitis (4) HTN (hypertension) Current Visit: No Status: Chronic Qualifiers: Hypertension type: essential hypertension Qualified Code(s): I10 - Essential (primary) hypertension Subjective Interval history: Patient was seen this morning doing well without complaints. Afebrile vital signs stable. Operative extremity: Neurovascularly intact Dressing bloody drainage change today Calves nontender Assessment and plan: Continue with postoperative care Hematocrit 33 Objective Vital signs: Vital Signs Temp Pulse Resp BP Pulse Ox 06/28/16 03:40 99.9 F H 109 14 93/60 99 06/27/16 23:51 98.4 F 97 15 103/61 99 06/27/16 22:42 98.7 F 93 16 101/67 99 06/27/16 21:37 98.1 F 93 15 95/63 95 06/27/16 20:49 98.4 F 93 14 100/55 97 06/27/16 20:23 97.6 F 95 14 101/60 96 06/27/16 20:05 97.7 F 97 14 103/60 94 L 06/27/16 19:55 97.7 F 96 14 95/54 96 06/27/16 19:45 98 14 94/63 93 L 06/27/16 19:35 96 16 100/61 94 L 06/27/16 19:25 97.8 F 99 16 107/60 98 06/27/16 19:15 102 18 109/73 97 06/27/16 19:05 90 18 102/58 100 06/27/16 18:55 98.8 F 93 18 85/62 100 06/27/16 15:24 98.9 F 87 16 105/67 96 06/27/16 14:52 97.5 F L 16 95/63 98 06/27/16 10:54 98.2 F 82 18 118/70 06/27/16 07:35 98.8 F 80 18 116/79 98 06/27/16 06:39 98.5 F 78 20 119/79 96 Intake and Output 06/27/16 06/27/16 06/28/16 15:59 23:59 07:59 Intake Total 177 / 177 100 / 100 100 / 100 Output Total 400 / 400 720 / 720 Balance -223 / -223 -620 / -620 100 / 100 Intake: IV Fluids 177 / 177 100 / 100 100 / 100 0.9 % Sodium Chloride 1, 177 / 177 000 ML @ 100 mls/hr IVC . Q10H [facility] Rx#:[id number] Ofirmev 1,000 mg In 100 100 / 100 ml @ 400 mls/hr IVPB ONCE ONE Rx#:[id number] Ancef 2,000 MG In 100 / 100 Dextrose 5% 100 ML @ 200 mls/hr IVPB Q8HR [facility] Rx#: [id number] Output: Urine 400 / 400 Estimated Blood Loss 720 / 720 Other: # Voids 1 - Labs CBC & BMP: 06/28/16 04:48 06/28/16 04:48 Labs: Abnormal lab results RBC 4.14 M/mcL (4.19-5.50) L 06/27/16 04:42 Hgb 11.1 g/dL (12.9-16.9) L 06/28/16 04:48 Hct 33.9 % (37.5-50.1) L 06/28/16 04:48 PT 12.3 Seconds (9.4-12.1) H 06/26/16 15:52 Glucose 142 mg/dL (70-99) H 06/28/16 04:48 - VTE Documentation of Mechanical Device: Venous foot pump, device Consult Discharge Plan - Plan Referrals: Gisselle Seymour, LOOM BLOWER [Primary Care Provider] - Prescriptions: Aspirin Enteric Coated [Aspirin EC] 325 mg PO Q12H #30 tablet. OxyCODONSpencer Immed Rel [Roxicodone 5 MG] 5 - 10 mg PO Q6HR PRN #40 tablet PRN Reason: Pain
[2016-06-28] MEDS ORDERED: *HR* Heparin 5,000 UNIT/ML VIAL SQ SCH (07:00)
[2016-06-28] MEDS: Gabapentin 300 MG CAPSULE PO SCH ×3 (07:54→20:14)
[2016-06-28] MEDS: Multivit/Ca/Min/Fe/FA 1 TAB TABLET PO SCH (07:54)
[2016-06-28] MEDS: Ascorbic Acid 500 MG TABLET PO SCH ×2 (07:55→16:44)
[2016-06-28] MEDS ORDERED: traMADol 50 MG TABLET PO ONE (08:13)
[2016-06-28] MEDS ORDERED: 0.9 % Sodium Chloride 500 ML IVC ONE (08:26)
[2016-06-28] MEDS ORDERED: Lisinopril 20 MG TABLET PO SCH (09:00)
[2016-06-28 09:05] LABS: Bilirubin,Urine Negative (Negative); Blood,Urine Negative (Negative); Clarity,Urine Clear (Clear); Color,Urine Dark Yellow (Yellow); Glucose,Urine (UA) Normal (Normal); Ketones,Urine Trace mg/dL (Negative); Leukocyte Esterase,Urine Negative (Negative); Nitrite,Urine Negative (Negative); PH,Urine 5.5 pH Units (5.0-8.0); Protein,Urine Trace mg/dL (Neg-Trace); Specific Gravity,Urine 1.025 (1.010-1.025); Urobilinogen,Urine Normal (Normal)
[2016-06-28 09:07] LABS: Bacteria,Urine None Seen per hpf (None-Few); Hyaline Casts,Urine Few per lpf (None-Few); Squamous Epithelial Cell,Urine Many per lpf (None-Few)
[2016-06-28 09:26] LABS: Mucus,Urine Moderate (Few)
--- NOTE | 2016-06-28 10:35 | Internal Med Progress Note ---
Date of Encounter: 06/28/16 Time of Encounter: 08:50 - Assessment and plan (1) Left femoral shaft fracture Current Visit: Yes Status: Acute Assessment and plan: Status post revision surgery. Supportive care. Pain control. Orthopedics following. Qualifiers: Encounter type: subsequent encounter Fracture type: closed Fracture morphology: oblique Fracture alignment: displaced Fracture healing: with routine healing Qualified Code(s): S72.332D - Displaced oblique fracture of shaft of left femur, subsequent encounter for closed fracture with routine healing (2) HTN (hypertension) Current Visit: No Status: Chronic Assessment and plan: Patient having low blood pressure today. Will hold antihypertensives. Bolus IV fluids as needed. Monitor blood pressure closely. High risk for complications at this time. Qualifiers: Hypertension type: essential hypertension Qualified Code(s): I10 - Essential (primary) hypertension (3) GERD (gastroesophageal reflux disease) Current Visit: No Status: Chronic Assessment and plan: On Prilosec Qualifiers: Esophagitis presence: esophagitis presence not specified Qualified Code(s) : K21.9 - Gastro-esophageal reflux disease without esophagitis (4) DVT prophylaxis Current Visit: Yes Status: Acute Assessment and plan: DVT prophylaxis with SCDs and aspirin. (5) Hypotension Current Visit: Yes Status: Acute Assessment and plan: Monitor blood pressure closely. IV hydration. Will also check lactate levels. Qualifiers: Hypotension type: other hypotension type Qualified Code(s): I95.89 - Other hypotension - Subjective Interval history: Patient complaining of pain at surgical site. He has been having low blood pressure this morning. Denies any dizziness or lightheadedness. No chest pain. - Constitutional Vitals: Temp Pulse Resp BP Pulse Ox 99.5 F 108 20 94/56 97 06/28/16 06:27 06/28/16 06:27 06/28/16 06:27 06/28/16 10:07 06/28/16 06:27 General appearance: Present: mild distress, A&O X 3, pleasant, no acute distress , answers questions appropriately - Respiratory Respiratory exam: Present: CTAB. Absent: accessory muscle use, rales, rhonchi, wheezes - Cardiovascular Cardiovascular exam: Present: RRR, +S1, +S2. Absent: diastolic murmur, gallop, rubs, systolic murmur - GI/Abdominal GI/Abdominal exam: Present: normal bowel sounds, soft, no peritoneal signs. Absent: distended, tenderness - Extremities Exam Extremities exam: Present: warm, radial pulses palpable and symetrical. Absent : cyanotic, pedal edema Additional comments: Tenderness noted at left hip and thigh. Normal range of motion in left ankle. There is some ecchymosis over the left leg. - Neurological Exam Neurological exam: Present: CN II-XII intact, oriented X3, no focal deficits. Absent: facial droop, speech deficit - Skin Skin exam: Present: dry, intact Internal Medicine: Result - Labs CBC & Chem 7: 06/28/16 04:48 06/28/16 04:48 Labs: Short CBC 06/27/16 06/28/16 Range/Units 19:17 04:48 Hgb 12.1 L 11.1 L (12.9-16.9) g/dL Hct 37.7 33.9 L (37.5-50.1) % BMP 06/28/16 04:48 Sodium 137 Potassium 4.3 Chloride 102 Carbon Dioxide 24 BUN 14 Creatinine 1.08 Glucose 142 H Calcium 8.6 Urine 06/28/16 Range/Units 07:40 Urine Color Dark Yellow (Yellow) Urine Clarity Clear (Clear) Urine pH 5.5 (5.0-8.0) pH Units Ur Specific [place] 1.025 (1.010-1.025) Urine Protein Trace (Neg-Trace) mg/dL Urine Glucose (UA) Normal (Normal) mg/dL - ABG Interpretation ABG results: PT/INR, D-dimer PT 12.3 Seconds (9.4-12.1) H 06/26/16 15:52 - Impressions Impressions Hip X-Ray 06/27/16 16:33 IMPRESSION: Status post revision of left hip hemiarthroplasty. No evidence of acute complication. D/ / Edi Braden MD / Edi Braden MD Interpreting Provider: Edi Braden MD - VTE Documentation of Mechanical Device: Venous foot pump, device Consult Discharge Plan - Plan Referrals: Gisselle Seymour CNP [Primary Care Provider] - Prescriptions: OxyCODONE Immed Rel [Roxicodone 5 MG] 5 - 10 mg PO Q6HR PRN #40 tablet PRN Reason: Pain Aspirin Enteric Coated [Aspirin EC] 325 mg PO Q12H #30 tablet.dr - Attending Attestation This document has been at least partially created by [employer] recognition technology by Dr. Solorzano. Errors in grammar, wording or other phrases may exist. If errors are found after the documentation is signed, they will be addressed individually in the addendum section of this document when appropriate.
[2016-06-28] MEDS: *HR* Enoxaparin 30 MG/0.3 ML SYRINGE SQ SCH (16:44)
[2016-06-28] MEDS ORDERED: Aspirin Enteric Coated 325 MG Tablet PO SCH (21:00)
[2016-06-29] MEDS: *HR* OxyCODONE Immed Rel 5 MG TABLET PO PRN ×3 (00:48→10:29)
[2016-06-29] MEDS: *HR* Enoxaparin 30 MG/0.3 ML SYRINGE SQ SCH (06:07)
[2016-06-29 06:42] LABS: Basophils % 0.4 %; Eosinophils # 0.1 K/mcL (0.0-0.6); Eosinophils % 0.9 %; Hematocrit 32.7 % (37.5-50.1); Hemoglobin 10.5 g/dL (12.9-16.9); Immature Granulocytes % 0.5 % (0-4); Lymphocytes # 1.9 K/mcL (0.6-4.6); Lymphocytes % 17.7 %; Mean Corpuscular HGB Conc 32.1 g/dL (31.6-35.5); Mean Corpuscular Hemoglobin 29.6 pg (28.0-33.3); Mean Corpuscular Volume 92.1 fL (83.0-100.0); Mean Platelet Volume 11.6 fL (9.4-12.4); Monocytes % 9.7 %; Neutrophils # 7.5 K/mcL (1.6-8.9); Platelet Count 159 K/mcL (140-400); Red Blood Count 3.55 M/mcL (4.19-5.50); Red Cell Distribution Width 12.8 % (11.5-14.5); Segmented Neutrophils % 70.8 %
[2016-06-29 06:52] LABS: BUN/Creatinine Ratio 11 (6-26); Blood Urea Nitrogen 10 mg/dL (8-26); Calcium 8.6 mg/dL (8.6-10.8); Carbon Dioxide 24 mEq/L (19-29); Chloride 101 mEq/L (98-109); Glucose 126 mg/dL (70-99); Osmolality,Calculated 283 (280-300); Potassium 4.1 mEq/L (3.5-4.5); Sodium 136 mEq/L (136-145); eGFR For African Americans > 60 (> 60); eGFR For Non-African Americans > 60 (> 60)
--- NOTE | 2016-06-29 08:44 | Orthopedics Progress Note ---
Date of Encounter: 06/29/16 Time of Encounter: 08:43 - Assessment and Plan (1) Obesity (BMI 30.0-34.9) Current Visit: Yes Status: Chronic (2) Left femoral shaft fracture Current Visit: Yes Status: Acute Qualifiers: Encounter type: subsequent encounter Fracture type: closed Fracture morphology: oblique Fracture alignment: displaced Fracture healing: with routine healing Qualified Code(s): S72.332D - Displaced oblique fracture of shaft of left femur, subsequent encounter for closed fracture with routine healing (3) GERD (gastroesophageal reflux disease) Current Visit: No Status: Chronic Qualifiers: Esophagitis presence: esophagitis presence not specified Qualified Code(s) : K21.9 - Gastro-esophageal reflux disease without esophagitis (4) HTN (hypertension) Current Visit: No Status: Chronic Qualifiers: Hypertension type: essential hypertension Qualified Code(s): I10 - Essential (primary) hypertension Subjective Interval history: Patient was seen this morning doing well without complaints. Afebrile vital signs stable. Operative extremity: Neurovascularly intact Dressing bloody drainage change today Calves nontender Assessment and plan: Continue with postoperative care Hematocrit 32 discharged today Objective Vital signs: Vital Signs Temp Pulse Resp BP Pulse Ox 06/29/16 06:33 98.5 F 94 16 114/68 98 06/29/16 04:00 98.7 F 98 17 110/66 98 06/29/16 00:00 99.6 F 71 17 124/69 95 06/28/16 18:00 98.9 F 101 18 115/69 97 06/28/16 16:18 64 18 95/57 96 06/28/16 15:10 98.6 F 64 18 95/57 96 06/28/16 10:58 98.9 F 95 18 109/65 96 06/28/16 10:07 94/56 Intake and Output 06/28/16 06/29/16 06/29/16 23:59 07:59 15:59 Intake Total 470 / 470 1020 / 1020 Output Total 600 / 600 1025 / 1025 Balance -130 / -130 -5 / -5 Intake: Oral 470 / 470 1020 / 1020 Output: Urine 600 / 600 1025 / 1025 Other: Meal Dinner Percent of Meal Consumed 90% - Labs CBC & BMP: 06/29/16 05:58 06/29/16 05:58 Labs: Abnormal lab results RBC 3.55 M/mcL (4.19-5.50) L 06/29/16 05:58 Hgb 10.5 g/dL (12.9-16.9) L 06/29/16 05:58 Hct 32.7 % (37.5-50.1) L 06/29/16 05:58 PT 12.3 Seconds (9.4-12.1) H 06/26/16 15:52 Glucose 126 mg/dL (70-99) H 06/29/16 05:58 Urine Ketones Trace mg/dL (Negative) H 06/28/16 07:40 Urine Microscopic RBC 3-5 per hpf (0-3) H 06/28/16 07:40 Urine Microscopic WBC 3-5 per hpf (0-3) H 06/28/16 07:40 Ur Squamous Epith Cells Many per lpf (None-Few) H 06/28/16 07:40 Urine Mucus Moderate (Few) H 06/28/16 07:40 - VTE Documentation of Mechanical Device: Venous foot pump, device Consult Discharge Plan - Plan Referrals: Josselyn Li, PAC [Physician Ladder Operator] - 08/03/16 10:30 am Gisselle Seymour, MEDICATION TECHNICIAN [Primary Care Provider] - 08/15/16 8:30 am Prescriptions: Aspirin Enteric Coated [Aspirin EC] 325 mg PO Q12H #30 tablet.dr [place] Immed Rel [Roxicodone 5 MG] 5 - 10 mg PO Q6HR PRN #40 tablet PRN Reason: Pain
[2016-06-29] MEDS: Gabapentin 300 MG CAPSULE PO SCH (09:12)
[2016-06-29] MEDS: Ascorbic Acid 500 MG TABLET PO SCH (09:12)
[2016-06-29] MEDS: Multivit/Ca/Min/Fe/FA 1 TAB TABLET PO SCH (09:12)
--- NOTE | 2016-06-29 09:29 | Internal Med Progress Note ---
Date of Encounter: 06/29/16 Time of Encounter: 08:10 - Assessment and plan (1) Left femoral shaft fracture Current Visit: Yes Status: Acute Assessment and plan: Doing well overall. Continue current management. Qualifiers: Encounter type: subsequent encounter Fracture type: closed Fracture morphology: oblique Fracture alignment: displaced Fracture healing: with routine healing Qualified Code(s): S72.332D - Displaced oblique fracture of shaft of left femur, subsequent encounter for closed fracture with routine healing (2) HTN (hypertension) Current Visit: No Status: Chronic Assessment and plan: Blood pressure is much better today. No longer having hypotension. Qualifiers: Hypertension type: essential hypertension Qualified Code(s): I10 - Essential (primary) hypertension (3) GERD (gastroesophageal reflux disease) Current Visit: No Status: Chronic Assessment and plan: On Prilosec Qualifiers: Esophagitis presence: esophagitis presence not specified Qualified Code(s) : K21.9 - Gastro-esophageal reflux disease without esophagitis (4) DVT prophylaxis Current Visit: Yes Status: Acute (5) Hypotension Current Visit: Yes Status: Resolved Assessment and plan: This has resolved Qualifiers: Hypotension type: other hypotension type Qualified Code(s): I95.89 - Other hypotension - Subjective Interval history: Patient is doing much better today. No longer having low blood pressure. No dizziness or lightheadedness. He is able to ambulate with walker. - Constitutional Vitals: Temp Pulse Resp BP Pulse Ox 98.5 F 94 16 114/68 98 06/29/16 06:33 06/29/16 06:33 06/29/16 06:33 06/29/16 06:33 06/29/16 06:33 General appearance: Present: mild distress, A&O X 3, pleasant, no acute distress , answers questions appropriately - Respiratory Respiratory exam: Present: CTAB. Absent: accessory muscle use, rales, rhonchi, wheezes - Cardiovascular Cardiovascular exam: Present: RRR, +S1, +S2. Absent: diastolic murmur, gallop, rubs, systolic murmur - GI/Abdominal GI/Abdominal exam: Present: normal bowel sounds, soft, no peritoneal signs. Absent: distended, tenderness - Extremities Exam Extremities exam: Present: tenderness (Left lower extremity), warm, radial pulses palpable and symetrical. Absent: calf tenderness, cyanotic, pedal edema Internal Medicine: Result - Labs CBC & Chem 7: 06/29/16 05:58 06/29/16 05:58 Labs: Short CBC 06/29/16 Range/Units 05:58 WBC 10.6 (4.3-11.1) K/mcL Hgb 10.5 L (12.9-16.9) g/dL Hct 32.7 L (37.5-50.1) % Plt Count 159 (140-400) K/mcL Neutrophils # 7.5 (1.6-8.9) K/mcL BMP 06/29/16 05:58 Sodium 136 Potassium 4.1 Chloride 101 Carbon Dioxide 24 BUN 10 Creatinine 0.92 Glucose 126 H Calcium 8.6 Urine 06/28/16 Range/Units 07:40 Urine Color Dark Yellow (Yellow) Urine Clarity Clear (Clear) Urine pH 5.5 (5.0-8.0) pH Units Ur Specific [place] 1.025 (1.010-1.025) Urine Protein Trace (Neg-Trace) mg/dL Urine Glucose (UA) Normal (Normal) mg/dL - ABG Interpretation ABG results: PT/INR, D-dimer PT 12.3 Seconds (9.4-12.1) H 06/26/16 15:52 - VTE Documentation of Mechanical Device: Venous foot pump, device Consult Discharge Plan - Plan Referrals: Josselyn Li, PAC [Physician Roof Service Technician] - 08/03/16 10:30 am Gisselle Seymour, SH[employer] CAPTAIN [Primary Care Provider] - 08/15/16 8:30 am Prescriptions: OxyCODONE Immed Rel [Roxicodone 5 MG] 5 - 10 mg PO Q6HR PRN #40 tablet PRN Reason: Pain Aspirin Enteric Coated [Aspirin EC] 325 mg PO Q12H #30 tablet.dr - Attending Attestation This document has been at least partially created by [employer] recognition technology by Dr. Solorzano. Errors in grammar, wording or other phrases may exist. If errors are found after the documentation is signed, they will be addressed individually in the addendum section of this document when appropriate.
[2016-06-29 11:12] VITALS: BP 112/72
== END 2016-06-29 12:45 | disposition home or self-care (01) | DRG 468 ==
LOC: EMEROO 12:58 → 3NENU 12:58 → SUATTDRO 18:01
PROVIDERS: ADMIT Nurse Practitioner Family; ATTEND Internal Medicine